=== PATIENT | female | born 1980 | race Caucasian/White ===

== ENCOUNTER → 2016-09-04 | Outpatient (REF) | payer OTHER | LOC: M LAB REF 22:09 | PROVIDERS: ATTEND Physician Assistant Medical | DX: J02.9 Acute pharyngitis, unspecified (principal) ==

== ENCOUNTER → 2017-09-21 | Outpatient (REF) | payer OTHER ==
[2017-09-21 20:35] LABS: FREE T3 2.4 PG/ML (2.2-4.0); FREE T4 0.98 NG/DL (0.76-1.46); THYROID STIMULATING HORMONE 0.839 uIU/ML (0.358-3.740)
[2017-09-26 00:06] LABS: ANTI PARVO VIRUS LEVEL IGG 6.9 index (0.0-0.8); ANTI PARVO VIRUS LEVEL IgM 1.4 index (0.0-0.8)
== END ==
LOC: M LABDRWAD 19:26
DX: M79.641 Pain in right hand (principal)

== ENCOUNTER → 2018-10-26 | Outpatient (CLI) | payer OTHER | LOC: M LAB 09:47 | PROVIDERS: ATTEND Internal Medicine Gastroenterology | DX: R19.7 Diarrhea, unspecified (principal) ==

== ENCOUNTER → 2018-11-01 | Outpatient (CLI) | payer OTHER ==
[2018-11-01 12:45] LABS: C REACTIVE PROTEIN QUANTITATIV 0.3 MG/DL (0.00-0.30); THYROID STIMULATING HORMONE 0.815 uIU/ML (0.358-3.740)
== END ==
LOC: M LABDRWAD 09:42
PROVIDERS: ATTEND Internal Medicine Gastroenterology
DX: R19.4 Change in bowel habit (principal); R14.0 Abdominal distension (gaseous)

== ENCOUNTER → 2019-04-14 | Outpatient (REF) | payer OTHER | LOC: M LAB REF 19:36 | PROVIDERS: ATTEND Physician Assistant | DX: J00 Acute nasopharyngitis [common cold] (principal) ==

== ENCOUNTER → 2020-05-18 | Outpatient (REF) | payer OTHER | LOC: M WUC 19:58 | PROVIDERS: ATTEND Physician Assistant | DX: J02.9 Acute pharyngitis, unspecified (principal) ==

== ENCOUNTER → 2021-06-17 | Outpatient (REF) | payer OTHER ==
[2021-06-17 16:09] LABS: BASO % 0.2 % (0.0-1.0); EOS # 0.1 10^3/uL (0.0-0.5); EOS % 0.7 % (0.0-3.0); HEMATOCRIT 43.7 % (36.0-47.0); HEMOGLOBIN 14.6 g/dl (12.0-15.5); LYMPH # 1.6 10^3/uL (1.5-5.0); LYMPH % 17.9 % (24.0-44.0); MEAN CORPUSCULAR HEMOGLOBIN 30.5 pg (27.0-33.0); MEAN CORPUSCULAR HGB CONC 33.4 g/dl (32.0-36.5); MEAN CORPUSCULAR VOLUME 91.2 fl (80.0-96.0); MONO # 0.6 10^3/uL (0.0-0.8); MONO % 6.6 % (2.0-8.0); NEUTROPHILS # 6.5 10^3/uL (1.5-8.5); NEUTROPHILS % 74.3 % (36.0-66.0); PLATELET COUNT, AUTOMATED 274 10^3/uL (150-450); RED BLOOD COUNT 4.79 10^6/uL (4.00-5.40); WHITE BLOOD COUNT 8.8 10^3/uL (4.0-10.0)
== END ==
LOC: M LABDRWAD 15:54
PROVIDERS: ATTEND Internal Medicine
DX: E86.0 Dehydration (principal)

== ENCOUNTER 2022-01-11 10:29 | Emergency (ER) | payer OTHER ==
[~2022-01-11] VITALS: Ht 165.1 cm; Wt 84.7 kg
[2022-01-11] MEDS ORDERED: BENA25CA4 PO (10:39)
[2022-01-11] MEDS ORDERED: VITMTA PO (10:39)
[2022-01-11] MEDS ORDERED: predniSONE 20 MG TAB PO ONE (12:05)
[2022-01-11 12:15] VITALS: BP 128/86
== END 2022-01-11 12:17 | disposition home or self-care (01) ==
LOC: M ED 10:29
DX: T78.40XA Allergy, unspecified, initial encounter (principal); R21 Rash and other nonspecific skin eruption; J45.909 Unspecified asthma, uncomplicated; Z88.0 Allergy status to penicillin
CPT/HCPCS: 99283; J7512

== ENCOUNTER → 2025-03-16 | Outpatient (CLI) | payer BC, OTHER ==
[~2025-03-16] MED LIST: BENA25CA4 PO; VITMTA PO
[2025-03-16 14:31] LABS: BASO # 0.0 10^3/uL (0.0-0.2); BASO % 0.3 % (0.0-1.0); EOS # 0.1 10^3/uL (0.0-0.5); EOS % 1.1 % (0.0-3.0); LYMPH # 1.6 10^3/uL (1.5-5.0); LYMPH % 21.7 % (24.0-44.0); MONO # 0.4 10^3/uL (0.0-0.8); MONO % 5.8 % (2.0-8.0); NEUTROPHILS # 5.3 10^3/uL (1.5-8.5); NEUTROPHILS % 71.0 % (36.0-66.0); PLATELET COUNT, AUTOMATED 288 10^3/uL (150-450)
[2025-03-16 14:38] LABS: ERYTHROCYTE SEDIMENTATION RATE 23 mm/hr (0-20)
[2025-03-16 14:58] LABS: VITAMIN B12 LEVEL 295 PG/ML (211-911)
[2025-03-16 14:59] LABS: TOTAL 25(OH) VITAMIN D 58.0 NG/ML (20.0-100.0)
[2025-03-16 15:02] LABS: ALT/SGPT 36 U/L (7.0-40); AST/SGOT 36 U/L (<34); CALCIUM LEVEL 9.3 MG/DL (8.5-10.1); CARBON DIOXIDE LEVEL 23 MMOL/L (20-31); CHLORIDE LEVEL 107 MMOL/L (98-107); CHOLESTEROL LEVEL 194 MG/DL (<200); CHOLESTEROL RISK RATIO 4.87 (<5); CREATININE FOR GFR 0.67 MG/DL (0.55-1.30); FREE T4 1.08 NG/DL (0.89-1.76); GLOMERULAR FILTRATION RATE > 90.0 (>58); LDL CHOLESTEROL 102.2 MG/DL (<100); NON-HDL-C 154.2 MG/DL; POTASSIUM SERUM 4.4 MMOL/L (3.5-5.1); SODIUM LEVEL 141 MMOL/L (136-145); TRIGLYCERIDES LEVEL 260 MG/DL (<150)
== END ==
LOC: M PLALAB 09:11
PROVIDERS: ATTEND Family Medicine
DX: R53.83 Other fatigue (principal); E55.9 Vitamin D deficiency, unspecified; Z79.899 Other long term (current) drug therapy; Z13.220 Encounter for screening for lipoid disorders

== ENCOUNTER → 2025-07-21 | Outpatient (CLI) | payer OTHER, BC ==
[2025-07-21 10:54] LABS: C REACTIVE PROTEIN QUANTITATIV 1.48 MG/DL (<1.0); CHOLESTEROL LEVEL 153.0 MG/DL (<200); CHOLESTEROL RISK RATIO 4.18 (<5); LDL CHOLESTEROL 75.6 MG/DL (<100); NON-HDL-C 116.4 MG/DL; TRIGLYCERIDES LEVEL 204.0 MG/DL (<150)
[2025-07-21 11:04] LABS: VITAMIN B12 LEVEL 590.0 PG/ML (211-911)
[2025-07-27 10:37] LABS: ANTI DS-DNA AB Negative (Negative)
== END ==
LOC: M PLALAB 09:17
PROVIDERS: ATTEND Family Medicine
DX: R53.83 Other fatigue (principal); R76.0 Raised antibody titer; E53.8 Deficiency of other specified B group vitamins; E78.2 Mixed hyperlipidemia